=== PATIENT | male | born 1950 | race Asian ===

== ENCOUNTER → 2019-02-21 | Outpatient (CLI) | payer MEDICARE, OTHER | END | disposition home or self-care (01) | LOC: RADPV 08:37 | PROVIDERS: ATTEND Internal Medicine Nephrology | DX: I12.9 Hypertensive chronic kidney disease with stage 1 through stage 4 chronic kidney disease, or unspecified chronic kidney disease (principal); E11.22 Type 2 diabetes mellitus with diabetic chronic kidney disease; N18.9 Chronic kidney disease, unspecified | CPT/HCPCS: 76770 ==

== ENCOUNTER 2023-05-27 11:14 | Emergency (ER) | payer MEDICARE, MEDICAID ==
[~2023-05-27] VITALS: Ht 157.5 cm; Wt 47.3 kg
[2023-05-27] MEDS ORDERED: CARV3.1231 PO (11:24)
[2023-05-27] MEDS ORDERED: EMPA25TA3 PO (11:24)
[2023-05-27] MEDS ORDERED: ATOR-2 PO (11:24)
[2023-05-27] MEDS ORDERED: LINA5TAB PO (11:24)
[2023-05-27] MEDS ORDERED: SACU1TAB PO (11:24)
[2023-05-27] MEDS ORDERED: LORA10TA7 PO (11:24)
[2023-05-27] MEDS ORDERED: SEMA7TAB2 PO (11:24)
[2023-05-27] MEDS ORDERED: RIVA10TA PO (11:24)
[2023-05-27] MEDS ORDERED: METF-1211 PO (11:24)
[2023-05-27] MEDS ORDERED: HYDR25TA PO (11:24)
[2023-05-27] MEDS ORDERED: TAMS-13 PO (11:24)
[2023-05-27] MEDS ORDERED: OMEP20CA13 PO (11:24)
[2023-05-27 12:46] LABS: BASOPHILS % (AUTO) 1.4 % (0.0-2.0); EOSINOPHILS % (AUTO) 3.6 % (1.0-6.0); HEMATOCRIT 35.4 % (41-53); HEMOGLOBIN 12.1 g/dL (13.5-17.5); LYMPHOCYTES # (AUTO) 1.1 K/uL (1.0-4.8); LYMPHOCYTES % (AUTO) 16.8 % (22.0-44.0); MEAN CORPUSCULAR HEMOGLOBIN 31.3 pg (26.0-34.0); MEAN CORPUSCULAR HGB CONC 34.1 G/dL (31.0-37.0); MEAN CORPUSCULAR VOLUME 92 fL (80-100); MONOCYTES # (AUTO) 0.6 K/uL (0.1-1.0); MONOCYTES % (AUTO) 8.5 % (2.0-9.0); NEUTROPHILS # (AUTO) 4.6 K/uL (1.8-7.7); NEUTROPHILS % (AUTO) 69.7 % (40.0-70.0); PLATELET COUNT (AUTO) 226 K/uL (150-450); RED BLOOD CELL COUNT(AUTO) 3.86 MIL/uL (4.50-5.90); RED CELL DISTRIBUTION WIDTH 12.3 % (11.5-14.5)
[2023-05-27 12:59] LABS: COVID AG,FIA SOURCE NASAL SWAB
[2023-05-27 13:00] LABS: CALCIUM, TOTAL 9.9 mg/dL (8.8-10.5); CREATININE 1.64 mg/dL (0.60-1.30); POTASSIUM 4.2 mmol/L (3.5-5.1); PROTHROMBIN TIME 10.9 SEC (9.4-11.6)
[2023-05-27 13:06] LABS: ALBUMIN 4.3 g/dL (3.4-5.0); BILIRUBIN,TOTAL 0.4 mg/dL (0.1-1.0); TOTAL PROTEIN, SERUM 8.4 g/dL (6.4-8.2)
[2023-05-27 13:28] LABS: INFLUENZA TYPE A NEGATIVE FOR TYPE A (NEGATIVE); INFLUENZA TYPE B NEGATIVE FOR TYPE B (NEGATIVE)
[2023-05-27 13:32] LABS: THYROID STIMULATING HORMONE 6.03 uIU/mL (0.36-3.74)
[2023-05-27 13:43] LABS: APPEARANCE,URINE CLEAR (CLEAR); BILIRUBIN,URINE NEGATIVE (NEGATIVE); GLUCOSE, URINE (UA) >=1000 mg/dL (NEGATIVE); KETONES,URINE NEGATIVE (NEGATIVE); LEUKOCYTE ESTERASE ,URINE NEGATIVE (NEGATIVE); NITRATE,URINE NEGATIVE (NEGATIVE); OCCULT BLOOD,URINE NEGATIVE (NEGATIVE); PROTEIN,URINE 30-70 mg/dL (NEGATIVE); SPECIFIC GRAVITIY, URINE 1.007 (1.003-1.030); UROBILINOGEN,URINE <=1.0 mg/dL (<=1.0)
[2023-05-27 13:46] LABS: OCCULT BLOOD STOOL SINGLE ONLY NEGATIVE (NEGATIVE)
[2023-05-27 13:51] LABS: BACTERIA,URINE None Seen /HPF (None Seen); RBC,URINE None Seen /HPF (0-2); WBC,URINE None Seen /HPF (0-5)
[2023-05-27 14:39] VITALS: TEMP 98.4
[2023-05-27 15:20] VITALS: BP 165/87; PULSE 90; RESP 16
== END 2023-05-27 15:20 | disposition home or self-care (01) ==
LOC: EMS 11:14
DX: R19.7 Diarrhea, unspecified (principal); R94.6 Abnormal results of thyroid function studies; E11.9 Type 2 diabetes mellitus without complications; E78.00 Pure hypercholesterolemia, unspecified; I11.9 Hypertensive heart disease without heart failure; Z88.0 Allergy status to penicillin; Z88.8 Allergy status to other drugs, medicaments and biological substances; Z79.01 Long term (current) use of anticoagulants; Z20.822 Contact with and (suspected) exposure to COVID-19
CPT/HCPCS: 71045; 74177; 80053; 81001; 82271; 82962; 83690; 84443; 85025; 85610; 85730; 86850; 86900; 86901; 87804; 93005; 99285; 36415-L1; 36415-TC

== ENCOUNTER 2023-08-25 12:32 | Emergency (ER) | payer MEDICARE, MEDICAID ==
[~2023-08-25] VITALS: Ht 157.5 cm; Wt 47.3 kg
[~2023-08-25 12:32] MED LIST: ATOR-2 PO; CARV3.1231 PO; EMPA25TA3 PO; HYDR25TA PO; LINA5TAB PO; LORA10TA7 PO; METF-1211 PO; OMEP20CA13 PO; RIVA10TA PO; SACU1TAB PO; TAMS0.4C34 PO
[2023-08-25 12:41] VITALS: BP 140/51; PULSE 81; RESP 18; TEMP 98.5
== END 2023-08-25 13:39 | disposition home or self-care (01) ==
LOC: EMS 12:33
DX: R21 Rash and other nonspecific skin eruption (principal); E11.9 Type 2 diabetes mellitus without complications; E78.00 Pure hypercholesterolemia, unspecified; I11.9 Hypertensive heart disease without heart failure; Z98.890 Other specified postprocedural states; Z88.0 Allergy status to penicillin; Z88.8 Allergy status to other drugs, medicaments and biological substances
CPT/HCPCS: 99282; Z7502